=== PATIENT | male | born 1965 | race Two or more races ===

== ENCOUNTER 2016-11-05 22:01 | Emergency (ER) | payer BC ==
[~2016-11-05 22:01] MED LIST: ASA CHILDREN'S81 MG PO
--- NOTE | 2016-11-06 02:57 | ER ---
ADMIT: 11/05/2016 RM/LOC: ER [facility] MR#: [id number] [address] [id number] ERNESTO FORD [address] [place] [id number] Emergency Room Report SEX: M AGE: 51 : 1965 DATE: 11/05/2016 The patient is a 51-year-old male, complaining of pruritic eruption in the past 4 days. No new medications. Denies any respiratory distress. Exam remarkable for nontoxic, afebrile male with pruritic eruption consistent with erythema multiforme with target lesions. The patient treated with epinephrine 0.3 mg IM, Depo-Medrol 80 mg IM, and Benadryl 50 mg IM with improvement. Home with prednisone 60 mg taper over 14 day taper. Follow up Dr. Bellamy as needed. Paul Chandler MD/ zamzam JOB #: [id number] CC: Paul Chandler MD, Attending Physician Emile Bellamy MD, Family Physician Emile Bellamy MD
== END 2016-11-05 22:56 | disposition home or self-care (01) ==
LOC: ER 22:01
DX: L51.9 Erythema multiforme, unspecified (principal); E78.00 Pure hypercholesterolemia, unspecified; Z90.49 Acquired absence of other specified parts of digestive tract